=== PATIENT | female | born 1995 | race Caucasian/White ===

== ENCOUNTER → 2020-01-29 13:07 | Outpatient (BNVA) | payer BC, SELFPAY | PROVIDERS: PCP Nurse Practitioner Family; Referring Provider Nurse Practitioner Family; Visit Provider Specialist | DX: G43.711 Chronic migraine without aura, intractable, with status migrainosus (principal) | CPT/HCPCS: 99204 ==

== ENCOUNTER → 2021-02-10 09:39 | Outpatient (BNVA) | payer MEDICAID, SELFPAY | PROVIDERS: PCP Nurse Practitioner Family; Visit Provider Obstetrics & Gynecology | DX: Z34.81 Encounter for supervision of other normal pregnancy, first trimester (principal); N92.6 Irregular menstruation, unspecified; F43.10 Post-traumatic stress disorder, unspecified; O99.340 Other mental disorders complicating pregnancy, unspecified trimester; F41.9 Anxiety disorder, unspecified; F32.9 Major depressive disorder, single episode, unspecified; Z28.3 Underimmunization status; O99.891 Other specified diseases and conditions complicating pregnancy; O21.9 Vomiting of pregnancy, unspecified; Z34.90 Encounter for supervision of normal pregnancy, unspecified, unspecified trimester | CPT/HCPCS: 80307; 84315; 86803 ==

== ENCOUNTER → 2021-03-10 14:12 | Outpatient (BNVA) | payer MEDICAID, SELFPAY | PROVIDERS: PCP Nurse Practitioner Family; Visit Provider Nurse Practitioner Women's Health | DX: Z34.90 Encounter for supervision of normal pregnancy, unspecified, unspecified trimester (principal); F41.9 Anxiety disorder, unspecified; F32.9 Major depressive disorder, single episode, unspecified; F43.10 Post-traumatic stress disorder, unspecified; Z28.3 Underimmunization status | CPT/HCPCS: 82105; 84315 ==

== ENCOUNTER 2021-04-21 03:56 | Outpatient (CLI) | payer BC, SELFPAY ==
[2021-04-21] VITALS (7 sets, daily range): BP systolic 107–111; BP diastolic 64–73; PULSE 67–82; RESP 18; TEMP 36.2; O2SAT 98–100; BMI 33.7
[2021-04-21 04:57] LABS: Add Urine Microscopic? NO; Charge for UA Resulting for Rev
[2021-04-21 05:02] LABS: Bilirubin Urine Neg (Negative); Blood Urine Neg (Negative); Glucose Urine UA Norm (Normal); Ketones Urine Negative (Negative); Leukocyte Esterase Urine Negative (Negative); Nitrate Urine Negative (Negative); Protein Urine Neg (Negative); Specific Gravity, Urine 1.015 (1.005-1.030); Urine Appearance Clear (CLEAR); Urine Color Yellow (Yellow); Urobilinogen Urine Norm (Negative); pH Urine 6 (5-7)
[2021-04-21] MEDS: terbutaline 1 mg/mL INJ 0.25 MG SUBCUT (05:17)
== END 2021-04-21 06:48 | disposition home or self-care (01) ==
LOC: OPOB 04:04 → OBGYN 04:05
PROVIDERS: PCP Nurse Practitioner Family; Visit Provider Obstetrics & Gynecology
DX: O26.899 Other specified pregnancy related conditions, unspecified trimester (principal); Z3A.00 Weeks of gestation of pregnancy not specified; R10.9 Unspecified abdominal pain
CPT/HCPCS: 81003; 96372; 99211; J3105

== ENCOUNTER 2021-04-21 20:43 | Outpatient (CLI) | payer BC, MEDICAID, SELFPAY ==
[2021-04-21] VITALS (11 sets, daily range): BP systolic 101–114; BP diastolic 59–66; PULSE 81–99; O2SAT 96–98; BMI 33.7
--- NOTE | 2021-04-21 21:09 | USR_ITS ---
PROCEDURE INFORMATION: Exam: US , Limited Exam date and time: 04/21/2021 9:09 PM Age: 25 years old Clinical indication: Lmp or gestational age (in weeks): 22w0d; Antepartum complications; Other: Contractions; TECHNIQUE: Imaging protocol: Real-time ultrasound of the maternal uterus with image documentation. Exam focused on the clinical indication. COMPARISON: US OB >= 14 weeks fetus [facility] 04/07/2021 7:54 AM FINDINGS: Gestation: Intrauterine gestation. presentation: Fetus is breech. heart rate: The heart rate is 136 bpm. Placenta: Placenta is anterior. Amniotic fluid index: DK = 16.68 cm. BIOMETRY: Gestational age (AUA): Estimated gestational age is 22 weeks/0 days. US/US OB limited [id number] IMPRESSION: Single viable intrauterine gestation, in breech presentation, with an estimated gestational age of 22 weeks/0 days.
[2021-04-21] MEDS: NIFEdipine 10 mg Capsule 30 MG PO (21:20)
[2021-04-21 21:42] LABS: Add Urine Culture? Yes; Bacteria Urine 2+ /hpf; Bilirubin Urine Neg (Negative); Blood Urine Neg (Negative); Glucose Urine UA Norm (Normal); Ketones Urine Negative (Negative); Leukocyte Esterase Urine Negative (Negative); Nitrate Urine Negative (Negative); Protein Urine Neg (Negative); RBC Urine 0-4 /hpf (0-2); Specific Gravity, Urine 1.005 (1.005-1.030); Squamous Epithelial Cell Urine 0-4 /hpf (0-5); Urine Appearance Clear (CLEAR); Urine Color Yellow (Yellow); Urobilinogen Urine Norm (Negative); WBC Urine 0-4 /hpf (0-5); pH Urine 6.5 (5-7)
== END 2021-04-21 23:07 | disposition home or self-care (01) ==
LOC: OPOB 20:44 → OBGYN 20:45
PROVIDERS: PCP Nurse Practitioner Family; Visit Provider Obstetrics & Gynecology
DX: O26.899 Other specified pregnancy related conditions, unspecified trimester (principal); Z3A.00 Weeks of gestation of pregnancy not specified; R10.9 Unspecified abdominal pain
CPT/HCPCS: 76815; 81001; 87086

== ENCOUNTER 2021-05-06 19:21 | Outpatient (CLI) | payer BC, MEDICAID, SELFPAY ==
[2021-05-06 19:21] VITALS: BMI 34.5
[2021-05-06 19:32] VITALS: BP 120/71; PULSE 99
[2021-05-06 19:58] VITALS: RESP 16
[2021-05-06 20:02] VITALS: BP 130/66; PULSE 97
[2021-05-06] MEDS: hyDROXYzine 25 mg Capsule 50 MG PO (20:13)
[2021-05-06 20:32] VITALS: BP 116/65; PULSE 91
[2021-05-06 20:45] LABS: Bilirubin Urine Neg (Negative); Blood Urine Neg (Negative); Glucose Urine UA Norm (Normal); Ketones Urine 1+ (Negative); Leukocyte Esterase Urine Negative (Negative); Nitrate Urine Negative (Negative); Protein Urine Neg (Negative); Urine Appearance Clear (CLEAR); Urine Color Yellow (Yellow); Urobilinogen Urine Norm (Negative); pH Urine 5 (5-7)
[2021-05-06 20:51] LABS: Add Urine Culture? No; Bacteria Urine 1+ /hpf; Mucus Urine 1+ /hpf; RBC Urine 0-4 /hpf (0-2); Squamous Epithelial Cell Urine 0-4 /hpf (0-5); WBC Urine 0-4 /hpf (0-5)
[2021-05-06 21:03] VITALS: BP 108/67; PULSE 86
[2021-05-06 21:33] VITALS: BP 108/67; PULSE 86; RESP 16
[2021-05-06] MEDS: nitrofurantoin SR (BID) 100 mg Capsule PO (21:38)
--- NOTE | 2021-05-07 08:50 | PC.NURSE ---
Prescription called into [facility] in [place] at this time.
== END 2021-05-06 21:38 | disposition home or self-care (01) ==
LOC: OPOB 19:22 → OBGYN 19:23
PROVIDERS: PCP Nurse Practitioner Family; Visit Provider Obstetrics & Gynecology
DX: O26.899 Other specified pregnancy related conditions, unspecified trimester (principal); Z3A.00 Weeks of gestation of pregnancy not specified; R10.9 Unspecified abdominal pain
CPT/HCPCS: 59025; 81001; 87086; 99211

== ENCOUNTER 2021-07-13 08:48 | Outpatient (CLI) | payer BC, MEDICAID, SELFPAY ==
[2021-07-13 09:00] VITALS: BMI 38.4
[2021-07-13 09:06] VITALS: BP 125/73; PULSE 108; RESP 16; TEMP 36.7
[2021-07-13 09:13] VITALS: RESP 16
[2021-07-13 09:36] VITALS: BP 116/62; PULSE 99
[2021-07-13 09:52] LABS: Bilirubin Urine Neg (Negative); Blood Urine Neg (Negative); Glucose Urine UA 2+ (Normal); Ketones Urine 1+ (Negative); Leukocyte Esterase Urine Negative (Negative); Nitrate Urine Negative (Negative); Protein Urine Neg (Negative); Specific Gravity, Urine 1.025 (1.005-1.030); Urine Appearance Clear (CLEAR); Urine Color Yellow (Yellow); Urobilinogen Urine Norm (Negative); pH Urine 5 (5-7)
[2021-07-13 10:10] VITALS: BP 111/63; PULSE 105
[2021-07-13 10:30] LABS: Bacteria Urine 2+ /hpf; Mucus Urine 2+ /hpf; Transitional Epi Cells Urine 0-4 /hpf
[2021-07-13 10:31] LABS: Add Urine Culture? Yes
== END 2021-07-13 10:30 | disposition home or self-care (01) ==
LOC: OPOB 08:58 → OBGYN 09:00
PROVIDERS: PCP Nurse Practitioner Family; Visit Provider Family Medicine
DX: O99.891 Other specified diseases and conditions complicating pregnancy (principal); M54.9 Dorsalgia, unspecified
CPT/HCPCS: 59025; 81001; 87086; 99211